=== PATIENT | female | born 1990 | race African-American/Black ===

== ENCOUNTER 2017-02-17 12:21 | Emergency (ER) | payer OTHER ==
[~2017-02-17] VITALS: Ht 177.8 cm; Wt 66.7 kg
[~2017-02-17 12:21] MED LIST: ADULT TUSS100 MG/5 M PO; AZITHROMYCIN 2250 MG PO; BACTRIM DS TAB1 EACH PO; BAYER BACK & B1 EACH; BENADRYL25 MG PO; CHERATUSSIN DA480 ML PO; CIPROFLOXACIN500 M1 PO; DEPO-PROVE150 MG/1 M; DEPO-PROVERA; DIFLUCAN150 MG PO; DOXYCYCLINE 10100 MG PO; FLAGYL500 MG PO; FLEXERIL PO; HYDROCODONE-AP1 EAC6 PO; IBUPROFEN 600600 M1 PO; IBUPROFEN 800800 M1 PO; IBUPROFEN 800800 MG PO; MECLIZINE 25 MG25 M1 PO; MEDROLDOSEPACK PO; NAPROSYN500 MG PO; NOHOMEMEDICATIONS; NORCO 5-325 TA1 EACH PO; PERCOCET PO; PHENERGAN 25 MG25 M1 PO; PREDNISONE 20 M20 M1 PO; PROAIR HFA8.5 GM IH; PROCTOSOL-HC28.35 GM RC; PROMETHAZINE-C120 ML PO; TESSALON PERLE100 MG PO; TESSALON200 MG PO; TOBRAMYCIN SULFA5 ML OP; TOBREX5 ML OP; TRAMADOL 50 MG50 MG PO; TRIAMCINOLONE A15 G1 TP; TRIANEX17 GM TP; ULTRAM 50MG TAB50 MG PO; VALIUM5 MG PO; VENTOLIN HFA 1818 GM INH; VICODIN 5-5001 EACH PO; ZOFRAN ODT4 MG PO; ZOFRAN4 MG PO; ZPAK PO
[2017-02-17 15:02] VITALS: BP 108/62
== END 2017-02-17 15:03 ==
LOC: ER 12:21
DX: M53.3 Sacrococcygeal disorders, not elsewhere classified (principal); Z98.890 Other specified postprocedural states; F17.210 Nicotine dependence, cigarettes, uncomplicated; F10.99 Alcohol use, unspecified with unspecified alcohol-induced disorder

== ENCOUNTER 2018-10-05 11:31 | Emergency (ER) | payer OTHER ==
[~2018-10-05] VITALS: Ht 177.8 cm; Wt 54.4 kg
[2018-10-05 11:50] LABS: URINE BILIRUBIN NEGATIVE (Negative); URINE BLOOD NEGATIVE (Negative); URINE CLARITY CLEAR; URINE COLOR YELLOW; URINE GLUCOSE-RANDOM* NEGATIVE (Negative); URINE KETONES 1+ (Negative); URINE LEUKOCYTES-REFLEX NEGATIVE (Negative); URINE NITRITE-REFLEX NEGATIVE (Negative); URINE PROTEIN (DIPSTICK) TRACE (Negative); URINE SPECIFIC GRAVITY >= 1.030 (1.005-1.035)
[2018-10-05 11:57] LABS: AMP/METHAMP Negative (Negative); BARBITURATES Negative (Negative); BENZODIAZEPINES Negative (Negative); COCAINE Negative (Negative); METHADONE Negative (Negative); OPIATES Negative (Negative); PCP Negative (Negative)
[2018-10-05 12:16] LABS: ABSOLUTE NEUTROPHILS 4.4 thou/uL (1.4-8.2); BASOPHILS 0.2 % (0.0-2.0); EOSINOPHILS 0.3 % (0.0-3.0); HEMATOCRIT 42.9 % (37.0-47.0); HEMOGLOBIN 14.7 gm/dL (12.0-15.0); LYMPHOCYTES 13.6 % (24.0-44.0); MCH 31.1 pg (26.0-34.0); MCHC 34.3 g/dL (28.0-37.0); MCV 90.5 fL (80.0-100.0); MONOCYTES 9.3 % (1.0-8.0); PLATELET COUNT 209 thou/uL (150-400); POLYS 76.6 % (36.0-66.0); RBC 4.73 mil/uL (4.20-5.00); RDW 13.2 % (10.5-14.5); WBC 5.7 thou/uL (4.0-11.0)
[2018-10-05 12:29] LABS: CALCIUM 9.5 mg/dL (8.5-10.1); CREATININE 0.8 mg/dL (0.6-1.0); POTASSIUM 3.6 mmol/L (3.5-5.1)
[2018-10-05 12:34] LABS: ALBUMIN 4.2 g/dL (3.4-5.0); TOTAL BILIRUBIN 0.8 mg/dL (<0.1-1.0); TOTAL PROTEIN 7.7 g/dL (6.4-8.2)
[2018-10-05] MEDS ORDERED: ZOFRAN8 MG PO (13:02)
[2018-10-05] MEDS ORDERED: PEPCID20 MG PO (13:02)
[2018-10-05 14:27] VITALS: BP 122/68
== END 2018-10-05 13:31 | disposition home or self-care (01) ==
LOC: ER 11:31
PROVIDERS: Emergency Medicine
DX: R11.2 Nausea with vomiting, unspecified (principal); R19.7 Diarrhea, unspecified; R10.10 Upper abdominal pain, unspecified; R10.13 Epigastric pain; F17.210 Nicotine dependence, cigarettes, uncomplicated; Z90.89 Acquired absence of other organs

== ENCOUNTER 2021-03-30 20:46 | Emergency (ER) | payer OTHER ==
[~2021-03-30] VITALS: Ht 177.8 cm; Wt 59.0 kg
[~2021-03-30 20:46] MED LIST changes: +PEPCID20 MG PO; +ZOFRAN8 MG PO
[2021-03-30] MEDS ORDERED: MOBIC7.5 MG PO (23:17)
[2021-03-30] MEDS ORDERED: ZANAFLEX4 MG PO (23:17)
[2021-03-30 23:22] VITALS: BP 113/75
== END 2021-03-30 23:22 | disposition home or self-care (01) ==
LOC: ER 20:46
DX: S16.1XXA Strain of muscle, fascia and tendon at neck level, initial encounter (principal); M25.512 Pain in left shoulder; F17.210 Nicotine dependence, cigarettes, uncomplicated; Z90.89 Acquired absence of other organs; V49.88XA Car occupant (driver) (passenger) injured in other specified transport accidents, initial encounter; Y93.89 Activity, other specified; Y92.413 State road as the place of occurrence of the external cause; Y99.9 Unspecified external cause status

== ENCOUNTER 2021-06-02 16:52 | Emergency (ER) | payer OTHER ==
[~2021-06-02] VITALS: Ht 177.8 cm; Wt 59.0 kg
[~2021-06-02 16:52] MED LIST changes: +MOBIC7.5 MG PO; +ZANAFLEX4 MG PO
[2021-06-02 17:06] VITALS: BP 119/80
[2021-06-02] MEDS ORDERED: AMOXICILLIN875 MG PO (18:01)
[2021-06-02] MEDS ORDERED: OFLOXACIN5 M1 EA. EAR (18:01)
== END 2021-06-02 18:08 | disposition home or self-care (01) ==
LOC: ER 16:52
DX: H60.93 Unspecified otitis externa, bilateral (principal); H66.93 Otitis media, unspecified, bilateral; F17.210 Nicotine dependence, cigarettes, uncomplicated; Z90.89 Acquired absence of other organs